=== PATIENT | male | born 1960 | race Asian ===

== ENCOUNTER 2023-09-16 19:27 | Emergency (ER) | payer OTHER ==
[~2023-09-16] VITALS: Ht 177.8 cm; Wt 105.6 kg
[2023-09-16] MEDS ORDERED: LABETALOL HCL 5 MG/ML 20 ML VIAL IVP PRN ×5 (19:45→21:30)
[2023-09-16 19:52] LABS: BASOPHILS % (AUTO) 0.7 % (0.0-2.0); HEMATOCRIT 46.3 % (41-53); LYMPHOCYTES # (AUTO) 3.4 K/uL (1.0-4.8); LYMPHOCYTES % (AUTO) 35.8 % (22.0-44.0); MEAN CORPUSCULAR HEMOGLOBIN 32.7 pg (26.0-34.0); MEAN CORPUSCULAR HGB CONC 34.7 G/dL (31.0-37.0); MEAN CORPUSCULAR VOLUME 94 fL (80-100); MONOCYTES # (AUTO) 0.7 K/uL (0.1-1.0); MONOCYTES % (AUTO) 7.3 % (2.0-9.0); NEUTROPHILS # (AUTO) 5.2 K/uL (1.8-7.7); NEUTROPHILS % (AUTO) 54.2 % (40.0-70.0); RED BLOOD CELL COUNT(AUTO) 4.91 MIL/uL (4.50-5.90); RED CELL DISTRIBUTION WIDTH 13.3 % (11.5-14.5); WHITE BLOOD COUNT (AUTO) 9.6 K/uL (4.5-11.0)
[2023-09-16 19:54] LABS: ANION GAP 9 mmol/L (8-16); CALCIUM, TOTAL 8.9 mg/dL (8.8-10.5); CARBON DIOXIDE 30 mmol/L (22-29); CHLORIDE 102 mmol/L (98-107); CREATININE 1.08 mg/dL (0.60-1.30); GLOMERULAR FILTR. RATE CALC > 60 mL/min (>60); GLUCOSE,RANDOM 140 mg/dL (70-110); SODIUM SERUM 141 mmol/L (136-145); UREA NITROGEN, BLOOD 19 mg/dL (7-18)
[2023-09-16 20:00] LABS: ALANINE AMINOTRANSFERASE 89 U/L (12-78); ALKALINE PHOSPHATASE 65 U/L (46-116); ASPARTATE AMINOTRANSFERASE 44 U/L (15-37); BILIRUBIN,TOTAL 1.1 mg/dL (0.1-1.0); INR 1.1 (0.9-1.1); PROTHROMBIN TIME 11.7 SEC (9.4-11.6); TOTAL PROTEIN, SERUM 7.1 g/dL (6.4-8.2)
[2023-09-16] MEDS ORDERED: IOHEXOL 350 MG/ML 100 ML VIAL ONE (20:01)
[2023-09-16] MEDS ORDERED: SODIUM CHLORIDE 0.9% 100 ML ONE (20:01)
[2023-09-16 20:02] LABS: TROPONIN I-HIGH SENSITIVITY 47 ng/L (<76)
[2023-09-16 20:05] VITALS: BP 134/81; PULSE 120; RESP 18; TEMP 98.3
[2023-09-16] MEDS ORDERED: ALTEPLASE PER STROKE PROTOCOL CLINICAL ONE (20:15)
[2023-09-16] MEDS ORDERED: NiCARDipine HCL 25 MG in SODIUM CHLORIDE 0.9% 240 ML IV PRN (20:15)
[2023-09-16] MEDS ORDERED: ONDANSETRON HCL 4 MG/2 ML VIAL IVP PRN ×2 (20:15→20:45)
[2023-09-16] MEDS ORDERED: SODIUM CHLORIDE 0.9% 50 ML IV ONE (20:15)
[2023-09-16] MEDS ORDERED: ALTEPLASE 81 MG in WATER FOR INJECTION,STERILE 81 ML IV ONE (20:20)
[2023-09-16] MEDS ORDERED: ALTEPLASE 9 MG in WATER FOR INJECTION,STERILE 9 ML IV ONE (20:20)
[2023-09-16] MEDS ORDERED: ACETAMINOPHEN 325 MG TABLET PO PRN (20:45)
[2023-09-16] MEDS ORDERED: POTASSIUM CHL 10 MEQ/WATER 50 ML IV SCH (20:45)
[2023-09-16 20:48] LABS: PLATELET COUNT (AUTO) 194 K/uL (150-450)
[2023-09-16] MEDS ORDERED: DOCUSATE SODIUM 100 MG CAPSULE PO SCH (21:00)
[2023-09-16] MEDS ORDERED: INSULIN LISPRO 100 UNITS/ML SQ PRN (21:15)
[2023-09-16] MEDS ORDERED: DEXTROSE 50%-WATER 25 GM/50 ML SYRINGE IVP PRN (21:15)
[2023-09-16] MEDS ORDERED: CHLORHEXIDINE GLUCONATE 2% TOWELETTE [2'S/6'S] TP SCH (22:00)
[2023-09-16 23:35] LABS: COVID AG,FIA SOURCE NASAL SWAB
[2023-09-16 23:58] LABS: SARS-COV2 (COVID) ANTIGEN,FIA Negative (Negative)
[2023-09-17] LABS: TROPONIN I-HIGH SENSITIVITY 72 ng/L (<76)
[2023-09-17] MEDS ORDERED: ATORVASTATIN CALCIUM 40 MG TABLET PO SCH (21:00)
[2023-09-17] MEDS ORDERED: ASPIRIN 81 MG CHEWABLE TABLET PO SCH (22:00)
== END 2023-09-17 00:40 | disposition short-term general hospital (02) ==
LOC: EMS 19:28
DX: I46.9 Cardiac arrest, cause unspecified (principal); R00.8 Other abnormalities of heart beat; R47.1 Dysarthria and anarthria; I10 Essential (primary) hypertension; Z20.822 Contact with and (suspected) exposure to COVID-19
CPT/HCPCS: 99291; 70496; 96365; 71045; 96367; 87426; 80053; 83036; 83735; 84484; 85025; 85610; 85730; 86850; 86900; 86901; 70498; 82948; 93005; 70450; 36415; J3490; Q9967; J3480; J7050 ×3; J2997